=== PATIENT | male | born 1995 | race Caucasian/White ===

== ENCOUNTER 2020-06-02 02:12 | Emergency (ER) | payer OTHER ==
[~2020-06-02] VITALS: Ht 182.9 cm; Wt 67.1 kg
[2020-06-02] MEDS ORDERED: ZOVIRAX30 GM TOP (06:28)
[2020-06-02] MEDS ORDERED: ZYNCOF 20-400120 ML PO (06:28)
== END 2020-06-02 06:40 | disposition home or self-care (01) ==
LOC: ER 02:12
DX: R50.9 Fever, unspecified (principal); Z03.818 Encounter for observation for suspected exposure to other biological agents ruled out; R53.81 Other malaise

== ENCOUNTER → 2022-06-08 | Emergency (ER) | payer OTHER ==
[~2022-06-08] VITALS: Ht 182.9 cm; Wt 68.0 kg
[~2022-06-08] MED LIST: ZOVIRAX30 GM TOP; ZYNCOF 20-400120 ML PO
== END | disposition home or self-care (01) ==
LOC: ER 01:12
DX: S50.02XA Contusion of left elbow, initial encounter (principal); W18.30XA Fall on same level, unspecified, initial encounter; Y93.67 Activity, basketball; Y92.89 Other specified places as the place of occurrence of the external cause; Y99.9 Unspecified external cause status